=== PATIENT | female | born 1955 ===

== ENCOUNTER 2023-11-26 01:00 | Emergency (ER) | payer MEDICARE, BC ==
[2023-11-26] MEDS: Ondansetron 4 MG Tab.DIS PO ONE (01:53)
== END 2023-11-26 02:32 | disposition home or self-care (01) ==
LOC: JP.ED 01:00
DX: R11.0 Nausea (principal); Z91.041 Radiographic dye allergy status; Z88.5 Allergy status to narcotic agent
CPT/HCPCS: 99284; Q0162